=== PATIENT | female | born 1980 | race Caucasian/White ===

== ENCOUNTER → 2019-01-17 | Outpatient (CLI) | payer OTHER ==
--- NOTE | 2019-01-17 17:26 | Diagnostic Imaging Report ---
EXAM: Thyroid Ultrasound INDICATION: ^THYROID NODULE COMPARISON: None TECHNIQUE: Transverse and sagittal images were obtained of the thyroid gland. FINDINGS: Thyroid gland: Size: Right lobe: 5.0 x 1.2 x 1.6 cm, Normal in size Left lobe: 5.0 x 1.0 x 1.7 cm, Normal in size Isthmus: 0.2 cm, Normal in size Appearance: Homogeneous echotexture without increased vascularity Masses/Nodules: None Parathyroid: No focal parathyroid masses. IMPRESSION: Normal thyroid. Signed by: Dr. Luis Alberto Franks M.D. on 01/17/2019 5:22 PM
== END ==
LOC: US 15:52
PROVIDERS: ATTEND Family Medicine
DX: E04.1 Nontoxic single thyroid nodule (principal)
CPT/HCPCS: 76536